=== PATIENT | female | born 1940 | race Caucasian/White ===

== ENCOUNTER 2016-09-29 05:04 | Emergency (ER) | payer MEDICARE, BC ==
[~2016-09-29 05:04] MED LIST: ALLOPURINOL100 MG PO; ANTIVERT25 MG PO; CARAFATE1 GM PO; CHLORDIAZEPOXI1 EACH PO; CITALOPRAM HBR10 MG PO; COLACE100 MG PO; DIPHENOXYLATE PO; FEOSOL325 MG PO; FOLIC ACID1 MG PO; HCTZ25 MG PO; HYDROCHLOROTHIA25 MG PO; HYDROCODON-ACE1 EAC6 PO; JUVEN PACKET1 EACH PO; KEFLEX500 MG PO; LEVOTHYROXINE50 MCG PO; LIBRAX CAPSULE1 EACH PO; LIBRIUM10 MG PO; MOTOFEN TABLET1 EACH PO; NOVOLIN 701 UNIT/0.0 SQ; NYSTOP60 GM TOP; OMEPRAZOLE20 MG PO; PERCOCET 10-321 EACH PO; RESTORIL30 MG PO; ROXICODONE15 MG PO; SENSI CARE PET113 GM TOP; TAMSULOSIN HCL0.4 MG PO; ZYLOPRIM100 MG PO
[2016-09-29 06:25] LABS: BASO % 0.3 % (0.1-1.2); EOS # 0.3 10_X3_uL (0.0-0.4); EOS % 2.8 % (0.7-5.8); GRAN % 77.3 % (34.0-71.1); HEMATOCRIT 34.4 % (34-45); HEMOGLOBIN 10.8 g/dL (11.2-15.7); LYMPH # 1.7 10_X3_uL (1.2-3.7); LYMPH % 14.7 % (19.3-51.7); MEAN CORPUSCULAR HEMOGLOBIN 26.7 pg (27.0-33.0); MEAN CORPUSCULAR HGB CONC 31.4 g/dL (32.0-36.0); MEAN CORPUSCULAR VOLUME 85.1 fL (79-95); MEAN PLATELET VOLUME 9.3 fl (7.5-11.5); MONO # 0.6 10_X3_uL (0.2-0.9); MONO % 4.9 % (4.7-12.5); PLATELET COUNT 257 x10_3/uL (182-369); RED BLOOD COUNT 4.04 x10_6/uL (3.9-5.2); RED CELL DISTRIBUTION WIDTH 14.9 % (11.7-14.4); WHITE BLOOD COUNT 11.6 x10_3/uL (4.0-10.0)
[2016-09-29 06:42] LABS: ALBUMIN 3.5 gm/dL (3.4-5.0); BILIRUBIN,TOTAL 0.23 mg/dL (0.0-1.0); CALCIUM 8.6 mg/dL (8.7-10.7); CREATININE 1.1 mg/dL (0.6-1.3); POTASSIUM 3.9 mmol/L (3.5-5.1); TOTAL PROTEIN 6.9 gm/dL (6.4-8.2)
== END 2016-09-29 10:48 | disposition home or self-care (01) ==
LOC: ER 05:04
PROVIDERS: Emergency Medicine
DX: S50.02XA Contusion of left elbow, initial encounter (principal); W06.XXXA Fall from bed, initial encounter; Y92.003 Bedroom of unspecified non-institutional (private) residence as the place of occurrence of the external cause; I87.8 Other specified disorders of veins
CPT/HCPCS: 36415; 73030; 73080; 73200; 80048; 80053; 83880; 85025; 99283; 99284-25

== ENCOUNTER 2016-12-14 19:39 | Emergency (ER) | payer MEDICARE, BC | END 2016-12-14 23:40 | disposition other institution (70) | LOC: ER 19:39 | DX: N39.0 Urinary tract infection, site not specified (principal); R60.0 Localized edema; M10.9 Gout, unspecified; E11.9 Type 2 diabetes mellitus without complications; Z87.440 Personal history of urinary (tract) infections; Z79.899 Other long term (current) drug therapy; Z79.4 Long term (current) use of insulin; Z79.891 Long term (current) use of opiate analgesic; Z88.2 Allergy status to sulfonamides | CPT/HCPCS: 99284; 99284-25 ==

== ENCOUNTER 2016-12-14 19:39 | Inpatient (IN) | payer MEDICARE, BC ==
[~2016-12-14] VITALS: Ht 160 cm; Wt 109.0 kg
[2016-12-14 20:14] LABS: BASO % 0.4 % (0.1-1.2); EOS # 0.4 10_X3_uL (0.0-0.4); EOS % 4.7 % (0.7-5.8); GRAN # 6.6 10_X3_uL (1.6-6.1); GRAN % 70.9 % (34.0-71.1); HEMATOCRIT 35.3 % (34-45); LYMPH # 1.8 10_X3_uL (1.2-3.7); MEAN CORPUSCULAR HEMOGLOBIN 27.4 pg (27.0-33.0); MEAN CORPUSCULAR HGB CONC 31.2 g/dL (32.0-36.0); MEAN CORPUSCULAR VOLUME 87.8 fL (79-95); MONO # 0.5 10_X3_uL (0.2-0.9); PLATELET COUNT 291 x10_3/uL (182-369); RED BLOOD COUNT 4.02 x10_6/uL (3.9-5.2); RED CELL DISTRIBUTION WIDTH 14.4 % (11.7-14.4); WHITE BLOOD COUNT 9.3 x10_3/uL (4.0-10.0)
[2016-12-14 20:27] LABS: ALBUMIN 3.4 gm/dL (3.4-5.0); BILIRUBIN,TOTAL 0.27 mg/dL (0.0-1.0); CALCIUM 8.3 mg/dL (8.7-10.7); CREATININE 1.3 mg/dL (0.6-1.3); TOTAL PROTEIN 6.8 gm/dL (6.4-8.2)
[2016-12-14 21:43] LABS: URINE BILIRUBIN NEGATIVE (NEGATIVE); URINE BLOOD TRACE (NEGATIVE); URINE GLUCOSE (UA) 100 mg/dL (NORMAL); URINE KETONE NEGATIVE (NEGATIVE); URINE LEUKOCYTE ESTERASE 2+ (NEGATIVE); URINE NITRATE POSITIVE (NEGATIVE); URINE PROTEIN 1+ (NEGATIVE); UROBILINOGEN NORMAL mg/dL (<1.0)
[2016-12-14 21:50] LABS: URINE RBC 0-5 /[HPF] (0-2)
[2016-12-14 21:51] LABS: URINE BACTERIA 3+ (NONE SEEN); URINE SQUAMOUS EPITHELIAL CELL 0-10 /[HPF] (NONE SEEN); URINE WBC TNTC /[HPF] (0-5)
[2016-12-15 06:15] LABS: BASO % 0.3 % (0.1-1.2); EOS # 0.5 10_X3_uL (0.0-0.4); EOS % 4.3 % (0.7-5.8); GRAN # 8.1 10_X3_uL (1.6-6.1); GRAN % 72.5 % (34.0-71.1); HEMATOCRIT 34.1 % (34-45); HEMOGLOBIN 10.5 g/dL (11.2-15.7); LYMPH # 1.9 10_X3_uL (1.2-3.7); LYMPH % 16.8 % (19.3-51.7); MEAN CORPUSCULAR HGB CONC 30.8 g/dL (32.0-36.0); MEAN CORPUSCULAR VOLUME 87.7 fL (79-95); MONO # 0.7 10_X3_uL (0.2-0.9); MONO % 6.1 % (4.7-12.5); PLATELET COUNT 275 x10_3/uL (182-369); RED BLOOD COUNT 3.89 x10_6/uL (3.9-5.2); RED CELL DISTRIBUTION WIDTH 14.6 % (11.7-14.4); WHITE BLOOD COUNT 11.2 x10_3/uL (4.0-10.0)
[2016-12-15 06:29] LABS: ALBUMIN 3.3 gm/dL (3.4-5.0); BILIRUBIN,TOTAL 0.33 mg/dL (0.0-1.0); CALCIUM 8.4 mg/dL (8.7-10.7); CREATININE 1.2 mg/dL (0.6-1.3); POTASSIUM 3.9 mmol/L (3.5-5.1); TOTAL PROTEIN 6.6 gm/dL (6.4-8.2)
[2016-12-16 06:41] LABS: BASO % 0.3 % (0.1-1.2); EOS # 0.5 10_X3_uL (0.0-0.4); EOS % 4.9 % (0.7-5.8); GRAN # 6.4 10_X3_uL (1.6-6.1); GRAN % 68.2 % (34.0-71.1); HEMATOCRIT 34.9 % (34-45); HEMOGLOBIN 10.7 g/dL (11.2-15.7); LYMPH % 21.2 % (19.3-51.7); MEAN CORPUSCULAR HGB CONC 30.7 g/dL (32.0-36.0); MEAN CORPUSCULAR VOLUME 88.1 fL (79-95); MEAN PLATELET VOLUME 10.1 fl (7.5-11.5); MONO # 0.5 10_X3_uL (0.2-0.9); MONO % 5.4 % (4.7-12.5); PLATELET COUNT 286 x10_3/uL (182-369); RED BLOOD COUNT 3.96 x10_6/uL (3.9-5.2); RED CELL DISTRIBUTION WIDTH 14.6 % (11.7-14.4); WHITE BLOOD COUNT 9.4 x10_3/uL (4.0-10.0)
[2016-12-16 07:07] LABS: ALBUMIN 3.3 gm/dL (3.4-5.0); BILIRUBIN,TOTAL 0.35 mg/dL (0.0-1.0); CALCIUM 8.4 mg/dL (8.7-10.7); CREATININE 1.5 mg/dL (0.6-1.3); POTASSIUM 4.7 mmol/L (3.5-5.1); TOTAL PROTEIN 6.7 gm/dL (6.4-8.2)
== END 2016-12-17 12:00 | disposition home or self-care (01) | DRG 690 ==
LOC: ER 19:39 → MS 23:40
PROVIDERS: Emergency Medicine; ADMIT Family Medicine
DX: N39.0 Urinary tract infection, site not specified (principal); I50.9 Heart failure, unspecified; B96.20 Unspecified Escherichia coli [E. coli] as the cause of diseases classified elsewhere; R60.0 Localized edema; E11.22 Type 2 diabetes mellitus with diabetic chronic kidney disease; R50.9 Fever, unspecified; M10.9 Gout, unspecified; R10.30 Lower abdominal pain, unspecified; Z16.12 Extended spectrum beta lactamase (ESBL) resistance; E11.621 Type 2 diabetes mellitus with foot ulcer; L97.529 Non-pressure chronic ulcer of other part of left foot with unspecified severity; L89.322 Pressure ulcer of left buttock, stage 2; L89.312 Pressure ulcer of right buttock, stage 2; N28.9 Disorder of kidney and ureter, unspecified; Z80.9 Family history of malignant neoplasm, unspecified; Z82.49 Family history of ischemic heart disease and other diseases of the circulatory system; Z79.891 Long term (current) use of opiate analgesic; Z79.899 Other long term (current) drug therapy; Z79.4 Long term (current) use of insulin; Z88.2 Allergy status to sulfonamides
CPT/HCPCS: 36415; 71010; 80053; 80061; 81001; 82962; 83036; 83880; 85025; 87040; 87086; 87186; 93306; 96374; 96375; 99070; 99284; 99284-25

== ENCOUNTER 2016-12-22 19:25 | Observation (INO) | payer MEDICARE, BC | END 2016-12-24 10:17 | disposition other institution (70) | LOC: ER 19:25 → MS 22:00 | PROVIDERS: ADMIT Family Medicine | DX: E86.0 Dehydration (principal); R53.1 Weakness; D64.9 Anemia, unspecified; R60.0 Localized edema; R32 Unspecified urinary incontinence; R31.9 Hematuria, unspecified; E11.9 Type 2 diabetes mellitus without complications; M25.562 Pain in left knee; M25.561 Pain in right knee; I44.7 Left bundle-branch block, unspecified; I44.0 Atrioventricular block, first degree; I10 Essential (primary) hypertension; K59.00 Constipation, unspecified; F32.9 Major depressive disorder, single episode, unspecified; L89.312 Pressure ulcer of right buttock, stage 2; L89.601 Pressure ulcer of unspecified heel, stage 1; L89.151 Pressure ulcer of sacral region, stage 1; M79.1 Myalgia; R51 Headache; R42 Dizziness and giddiness; G89.29 Other chronic pain; M54.9 Dorsalgia, unspecified; N28.9 Disorder of kidney and ureter, unspecified; M10.9 Gout, unspecified; Z95.0 Presence of cardiac pacemaker; R06.00 Dyspnea, unspecified; R53.81 Other malaise; Z79.4 Long term (current) use of insulin; Z79.899 Other long term (current) drug therapy; Z88.2 Allergy status to sulfonamides; R63.4 Abnormal weight loss; Z68.41 Body mass index [BMI] 40.0-44.9, adult; Z91.81 History of falling; Z87.440 Personal history of urinary (tract) infections; Z80.0 Family history of malignant neoplasm of digestive organs; Z80.8 Family history of malignant neoplasm of other organs or systems | CPT/HCPCS: 36415; 80048; 80053; 80061; 81001; 82550; 82553; 82962; 85025; 93005; 96360; 96361; 96372; 99070; 99284; G0378 ==

== ENCOUNTER 2016-12-22 19:25 | Inpatient (IN) | payer MEDICARE, BC ==
[~2016-12-22] VITALS: Ht 160 cm; Wt 107.0 kg
[2016-12-22 20:36] LABS: URINE BILIRUBIN NEGATIVE (NEGATIVE); URINE BLOOD TRACE (NEGATIVE); URINE GLUCOSE (UA) NORMAL (NORMAL); URINE KETONE NEGATIVE (NEGATIVE); URINE LEUKOCYTE ESTERASE TRACE (NEGATIVE); URINE NITRATE NEGATIVE (NEGATIVE); URINE PROTEIN NEGATIVE (NEGATIVE); UROBILINOGEN NORMAL mg/dL (<1.0)
[2016-12-22 20:40] LABS: BASO % 0.3 % (0.1-1.2); EOS # 0.3 10_X3_uL (0.0-0.4); EOS % 3.2 % (0.7-5.8); GRAN # 7.1 10_X3_uL (1.6-6.1); GRAN % 73.7 % (34.0-71.1); HEMATOCRIT 33.9 % (34-45); HEMOGLOBIN 10.7 g/dL (11.2-15.7); LYMPH # 1.7 10_X3_uL (1.2-3.7); LYMPH % 17.2 % (19.3-51.7); MEAN CORPUSCULAR HEMOGLOBIN 27.3 pg (27.0-33.0); MEAN CORPUSCULAR HGB CONC 31.6 g/dL (32.0-36.0); MEAN CORPUSCULAR VOLUME 86.5 fL (79-95); MEAN PLATELET VOLUME 9.8 fl (7.5-11.5); MONO # 0.5 10_X3_uL (0.2-0.9); MONO % 5.6 % (4.7-12.5); PLATELET COUNT 265 x10_3/uL (182-369); RED BLOOD COUNT 3.92 x10_6/uL (3.9-5.2); RED CELL DISTRIBUTION WIDTH 14.6 % (11.7-14.4); WHITE BLOOD COUNT 9.7 x10_3/uL (4.0-10.0)
[2016-12-22 20:48] LABS: URINE RBC 0-5 /[HPF] (0-2); URINE SQUAMOUS EPITHELIAL CELL 0-10 /[HPF] (NONE SEEN); URINE WBC 0-5 /[HPF] (0-5)
[2016-12-22 21:21] LABS: ALBUMIN 3.8 gm/dL (3.4-5.0); BILIRUBIN,TOTAL 0.27 mg/dL (0.0-1.0); CALCIUM 8.8 mg/dL (8.7-10.7); CREATININE 1.8 mg/dL (0.6-1.3); POTASSIUM 4.2 mmol/L (3.5-5.1); TOTAL PROTEIN 7.5 gm/dL (6.4-8.2)
[2016-12-23 06:38] LABS: CKMB 2.1 ng/ml (0.0-5.0)
[2016-12-23 06:40] LABS: TROP-I < 0.30 NG/ML (0.00-0.30)
[2016-12-23 06:41] LABS: BASO % 0.4 % (0.1-1.2); EOS # 0.4 10_X3_uL (0.0-0.4); EOS % 5.6 % (0.7-5.8); GRAN # 4.9 10_X3_uL (1.6-6.1); GRAN % 63.9 % (34.0-71.1); HEMATOCRIT 31.7 % (34-45); HEMOGLOBIN 10.6 g/dL (11.2-15.7); LYMPH # 1.9 10_X3_uL (1.2-3.7); LYMPH % 24.6 % (19.3-51.7); MEAN CORPUSCULAR HEMOGLOBIN 27.4 pg (27.0-33.0); MEAN CORPUSCULAR HGB CONC 33.4 g/dL (32.0-36.0); MEAN CORPUSCULAR VOLUME 81.9 fL (79-95); MEAN PLATELET VOLUME 9.7 fl (7.5-11.5); MONO # 0.4 10_X3_uL (0.2-0.9); MONO % 5.5 % (4.7-12.5); PLATELET COUNT 245 x10_3/uL (182-369); RED BLOOD COUNT 3.87 x10_6/uL (3.9-5.2); RED CELL DISTRIBUTION WIDTH 14.7 % (11.7-14.4); WHITE BLOOD COUNT 7.7 x10_3/uL (4.0-10.0)
[2016-12-23 06:44] LABS: CALCIUM 8.6 mg/dL (8.7-10.7); CREATININE 1.7 mg/dL (0.6-1.3); POTASSIUM 4.3 mmol/L (3.5-5.1)
[2016-12-24 06:41] LABS: CALCIUM 8.3 mg/dL (8.7-10.7); CREATININE 1.5 mg/dL (0.6-1.3); POTASSIUM 4.6 mmol/L (3.5-5.1)
[2016-12-24 07:11] LABS: HEMATOCRIT 31.3 % (34-45); HEMOGLOBIN 9.6 g/dL (11.2-15.7); MEAN CORPUSCULAR HEMOGLOBIN 27.2 pg (27.0-33.0); MEAN CORPUSCULAR HGB CONC 30.7 g/dL (32.0-36.0); MEAN CORPUSCULAR VOLUME 88.7 fL (79-95); MEAN PLATELET VOLUME 10.4 fl (7.5-11.5); RED BLOOD COUNT 3.53 x10_6/uL (3.9-5.2); RED CELL DISTRIBUTION WIDTH 14.6 % (11.7-14.4); WHITE BLOOD COUNT 6.8 x10_3/uL (4.0-10.0)
[2016-12-24 11:31] LABS: HEMATOCRIT 34.2 % (34-45); HEMOGLOBIN 10.6 g/dL (11.2-15.7)
[2016-12-24 17:32] LABS: HEMATOCRIT 37.6 % (34-45); HEMOGLOBIN 11.7 g/dL (11.2-15.7)
[2016-12-25 06:43] LABS: HEMATOCRIT 32.7 % (34-45); HEMOGLOBIN 9.9 g/dL (11.2-15.7); MEAN CORPUSCULAR HEMOGLOBIN 26.5 pg (27.0-33.0); MEAN CORPUSCULAR HGB CONC 30.3 g/dL (32.0-36.0); MEAN CORPUSCULAR VOLUME 87.7 fL (79-95); MEAN PLATELET VOLUME 10.8 fl (7.5-11.5); RED BLOOD COUNT 3.73 x10_6/uL (3.9-5.2); RED CELL DISTRIBUTION WIDTH 14.6 % (11.7-14.4); WHITE BLOOD COUNT 7.8 x10_3/uL (4.0-10.0)
[2016-12-25 06:51] LABS: CALCIUM 8.8 mg/dL (8.7-10.7); CREATININE 1.4 mg/dL (0.6-1.3)
== END 2016-12-25 11:55 | disposition home or self-care (01) | DRG 641 ==
LOC: ER 19:25 → MS 22:00
PROVIDERS: Internal Medicine; ADMIT Family Medicine
DX: E86.0 Dehydration (principal); Z68.41 Body mass index [BMI] 40.0-44.9, adult; R53.1 Weakness; D64.9 Anemia, unspecified; R60.0 Localized edema; R32 Unspecified urinary incontinence; R31.9 Hematuria, unspecified; E11.9 Type 2 diabetes mellitus without complications; M25.562 Pain in left knee; M25.561 Pain in right knee; I44.7 Left bundle-branch block, unspecified; I44.0 Atrioventricular block, first degree; I10 Essential (primary) hypertension; K59.00 Constipation, unspecified; F32.9 Major depressive disorder, single episode, unspecified; M79.1 Myalgia; R51 Headache; R42 Dizziness and giddiness; G89.29 Other chronic pain; M54.9 Dorsalgia, unspecified; N28.9 Disorder of kidney and ureter, unspecified; M10.9 Gout, unspecified; L89.312 Pressure ulcer of right buttock, stage 2; L89.601 Pressure ulcer of unspecified heel, stage 1; L89.151 Pressure ulcer of sacral region, stage 1; Z95.0 Presence of cardiac pacemaker; R06.00 Dyspnea, unspecified; Z79.4 Long term (current) use of insulin; Z79.899 Other long term (current) drug therapy; Z88.2 Allergy status to sulfonamides; R63.4 Abnormal weight loss; R53.81 Other malaise; Z91.81 History of falling; Z87.440 Personal history of urinary (tract) infections; Z80.0 Family history of malignant neoplasm of digestive organs; Z80.8 Family history of malignant neoplasm of other organs or systems
CPT/HCPCS: 36415; 80048; 80053; 80061; 81001; 82550; 82553; 82962; 85014; 85025; 93005; 97116; 97161; 99070; 99284; G0328-QW